=== PATIENT | female | born 1990 | race Two or more races ===

== ENCOUNTER 2025-02-21 10:59 | Day surgery (SDC) | payer OTHER, SELFPAY ==
[2025-02-21] VITALS (13 sets, daily range): BP systolic 86–133; BP diastolic 38–79; PULSE 79–115; RESP 14–20; TEMP 36.1–36.6; O2SAT 96–100; BMI 51.8
[2025-02-21] MEDS: SODIUM CHLORIDE 0.9 % (FLUSH) 10 ML SYRINGE IVF (12:08)
[2025-02-21] MEDS: LACTATED RINGERS 1000 ML 1,000 ML 100 ML IV (12:08)
[2025-02-21] MEDS: PIPERACILLIN/TAZOBACTAM 3.375 GM INJ IVPB (12:50)
[2025-02-21] MEDS: BUPIVACAINE 0.25% 30 ML INJECTION (13:25)
[2025-02-21] MEDS: BUPIVACAINE LIPOSOME 133 MG/10 ML INJ INFILTRATI (13:25)
--- NOTE | 2025-02-21 13:31 | SUR.OPER ---
tomy in place, used as seton, both ends tied together outside of body
[2025-02-21] MEDS: PHENYLEPHRINE 100 MCG/ML SYRINGE IVP ×2 (13:35→13:43)
--- NOTE | 2025-02-21 13:35 | P.ANES_ITS ---
Anesthesia Charges Start Date/Time Anesthesia Start Date: 02/21/25 Anesthesia Start Time: 12:21 Stop Date/Time Anesthesia Stop Date: 02/21/25 Anesthesia Stop Time: 13:28 Summary Emergency: CYLINDRICAL MIXER Coding CPT Codes CPT Codes: ANESTH ANORECTAL SURGERY - 23766 ([id number]) P3 - PATIENT W/SEVERE SYS DISEASE, QK - BLUEPRINT MACHINE OPERATOR 2-4 CNCRNT ANES PROC, P6 - BRAIN- PT ORGANS REMOVED Additional Codes: Summary - Emergency: CYLINDRICAL MIXER ([id number])
--- NOTE | 2025-02-21 13:35 | W.ANESCHARGE ---
Anesthesia Charges Start Date/Time Anesthesia Start Date: 02/21/25 Anesthesia Start Time: 12:21 Stop Date/Time Anesthesia Stop Date: 02/21/25 Anesthesia Stop Time: 13:28 Summary Emergency: PICKER Coding CPT Codes CPT Codes: ANESTH ANORECTAL SURGERY - 33586 ([id number]) P3 - PATIENT W/SEVERE SYS DISEASE, QK - GLASS BULB MACHINE ADJUSTER 2-4 CNCRNT ANES PROC, P6 - BRAIN- PT ORGANS REMOVED Additional Codes: Summary - Emergency: PICKER ([id number])
--- NOTE | 2025-02-21 13:46 | PM.GSPRC ---
Operative Note Date of procedure: 02/21/25 Pre-op diagnosis: Perianal abscess Post-op diagnosis: Same Type of Procedure: Exam under anesthesia, incision and drainage perianal abscess Indications: Patient is a 35-year-old female who presented to clinic with clinical workup in symptoms consistent with a large perianal abscess. Risks and benefits of operative intervention were discussed at length with the patient. Risks included but was not limited to: Bleeding, infection, risk of damage to surrounding structures, possible need for additional procedures and postoperative complications such as pneumonia, pulmonary emboli or [place]. All questions and concerns were addressed with the patient agreeing to proceed. Procedure Description: Prior to going to the operating room risks and benefits of the procedure were discussed at length. They were taken to the operating room and a spinal anesthetic was given by Anesthesia without difficulty. The patient was then transferred to the Operating Room table, placed in the prone jackknife position with appropriate bumps and padding. Care was taken to ensure the genitalia and breasts were properly positioned on the hip and chest rolls, respectively. The shoulders and arms were positioned with care to protect the brachial plexus. The buttocks were taped laterally. A sterile prep and drape was in the usual fashion. The patient was brought to the Operating Room and a formal timeout for patient safety was performed in accordance with hospital protocol, thereby correctly matching this patient with their diagnosis and intended procedure. External examination, digital rectal examination, and anoscopic examination were all done and revealed induration of the left buttock and a skin opening approximately 2 cm from the anal verge anterior, left lateral with purulent drainage. A culture was obtained. Using an 11 blade a cruciate incision over this area, with good return of pus. The underlying cavity was opened further with blunt dissection. A large underlying cavity extending to the left buttock and measuring approximately 9 cm was appreciated. Careful examination failed to identify a perianal fistula. The skin corners of the cruciate incision were trimmed off to allow for proper drainage. A counter incision was made in the left buttock. A Obie drain placed between the 2 openings to facilitate continued drainage. The cavity was copiously irrigated with saline. There appeared to be no undrained collections. Hemostasis was excellent. The area was anesthetized with a mixture of Exparel and Marcaine. The patient tolerated procedure well. There were no apparent complications. Instrument, sponge, and needle counts were correct at the end of the case. Findings: Large perianal abscess with cavity measuring 9 cm. Two incisions made and Obie drain placed to help facilitate continued drainage. Anesthesia: MAC and spinal Surgeon: Patria Silva MD Estimated blood loss (mL): 10 Condition: stable Disposition: PACU
[2025-02-21] MEDS: 0.9 % SODIUM CHLORIDE 500 ML 500 ML 100 ML IV (14:15)
--- NOTE | 2025-02-21 14:51 | P.ANES_ITS ---
Anesthesia Charges Start Date/Time Anesthesia Start Date: 02/21/25 Anesthesia Start Time: 12:21 Stop Date/Time Anesthesia Stop Date: 02/21/25 Anesthesia Stop Time: 13:28 Summary Emergency: CHARLENE Coding CPT Codes CPT Codes: ANESTH ANORECTAL SURGERY - 79165 ([id number]) QK - FAMILY WELFARE SOCIAL WORK PROFESSOR 2-4 CNCRNT ANES PROC, QX - HEALTH AND WELLNESS ADVISOR SVC W/ MD MED DIRECTION, P3 - PATIENT W/SEVERE SYS DISEASE Additional Codes: Summary - Emergency: CHARLENE ([id number])
--- NOTE | 2025-02-21 14:51 | W.ANESCHARGE ---
Anesthesia Charges Start Date/Time Anesthesia Start Date: 02/21/25 Anesthesia Start Time: 12:21 Stop Date/Time Anesthesia Stop Date: 02/21/25 Anesthesia Stop Time: 13:28 Summary Emergency: CHARLENE Coding CPT Codes CPT Codes: ANESTH ANORECTAL SURGERY - 28847 ([id number]) QK - SENIOR HARDWARE ENGINEER 2-4 CNCRNT ANES PROC, QX - PRINTED CIRCUIT BOARDS ROUTER SVC W/ MD MED DIRECTION, P3 - PATIENT W/SEVERE SYS DISEASE Additional Codes: Summary - Emergency: CHARLENE ([id number])
== END 2025-02-21 15:42 | disposition home or self-care (01) ==
PROVIDERS: Visit Provider Surgery
PROC: (CPT 46040; principal; 2025-02-21 12:15)
DX: K61.0 Anal abscess (principal)
CPT/HCPCS: 46050; 00902; 87070; 87075; 87076; 87205; 99140; J0665; J0666; J1100; J2250; J2371; J2405; J2543; J2704; J3010; J3490; J7030; J7120